=== PATIENT | female | born 1965 | race Caucasian/White ===

== ENCOUNTER 2022-02-03 12:28 | Emergency (ER) | payer BC, SELFPAY ==
[2022-02-03 12:40] VITALS: BP 138/106; PULSE 90; RESP 12; TEMP 37.2; O2SAT 98; BMI 23.0
--- NOTE | 2022-02-03 13:11 | ED_ITS ---
HPI - Dizziness General Chief Complaint: Dizziness/Vertigo Stated Complaint: Dizziness Time Seen by Provider: 02/03/22 13:11 Source: patient, family and RN notes reviewed History of Present Illness HPI Narrative: 56-year-old woman presenting to the emergency department with her with complaint of dizziness. Things are spinning around her not and she is feeling lightheaded. No sense of palpitations. This began upon waking from sleep 5 days ago. Has been intermittent and worse with movement. Not really present at rest. Seems to have symptoms when turning her head to the left or extending. She is initiated Roberto maneuvers. She works as a physical therapist diagnosed herself as having ?vertigo?. This has been on and off symptoms of this dizziness over the last 5 days. Was alarming today with her 3-1/2 hours ago when taking shower suddenly had a sensation of weakness in her right hand. Catarina like just felt strange. Still does not quite feel back to normal. She thought she was going to drop the soap. She has not had loss of sensation. No chest pain, shortness of breath, palpitations. No recent head cold or cough symptoms. About a week ago had had a insect bite perhaps in the right mid volar forearm. Any effect of that had faded. Related Data Previous Rx's Medication Instructions Recorded diazepam 5 mg tablet (Valium) 5 mg PO TID PRN #6 tab 02/03/22 meclizine 25 mg tablet 25 mg PO TID PRN #15 tab 02/03/22 prednisone 20 mg tablet 40 mg PO DAILY 5 Days #10 tab 02/03/22 Allergies Allergy/AdvReac Type Severity Reaction Status Date / Time No Known Drug Allergies Allergy Verified 02/03/22 12:50 Review of Systems Status of ROS: Reports: 10 or more systems reviewed and unremarkable except as noted in History and below [facility] Medical History No significant past medical history Surgical History H/O adenoidectomy Social History Smoking Status: Never smoker How often do you have a drink containing alcohol: 2-3 times a week AUDIT-C Alcohol total score: 3 Non-prescribed substance use: denies use Exam Narrative: Exam Narrative: Pleasant. NAD. Speaking fluidly easily. Moving all extremities without difficulty. Full strength throughout. Cranial nerves 2-12 intact Head is atraumatic. No facial swelling erythema or tenderness. TMs bilaterally are clear Neck is supple. No LA. No bruits. Lungs are clear Cardiovascular RRR no MR Ivone There does appear to be nystagmus to the left side with eye movements. Hints exam did seem subtly positive perhaps with the left side. Const: Vital Signs, click to edit/add: Vital Signs - 24 hr 02/03/22 12:40 02/03/22 14:30 02/03/22 16:20 Temperature 98.9 F 98.9 F Pulse Rate [Pulse Oximeter] 90 80 Respiratory Rate 12 14 14 Blood Pressure [Le ft Upper Arm] 138/106 H 117/60 Pulse Oximetry 98 98 Documenting provider has reviewed patient's vital signs: yes Course Course Hospital Course: monitored without further event. received ivf hand symptoms resolved Vital Signs Vital signs: Initial Vital Signs Temperature 98.9 F 02/03/22 12:40 Temperature Source Temporal Artery Scan 02/03/22 12:40 Pulse Rate 90 02/03/22 12:40 Pulse Rhythm 02/03/22 12:40 Respiratory Rate 12 02/03/22 12:40 Blood Pressure 138/106 H 02/03/22 12:40 Blood Pressure Mean 116 02/03/22 12:40 Blood Pressure Position Sitting 02/03/22 12:40 Pulse Oximetry 98 02/03/22 12:40 Oxygen Delivery Method 02/03/22 12:40 Vital Signs Temperature 98.9 F 02/03/22 12:40 Pulse Rate 90 02/03/22 12:40 Respiratory Rate 12 02/03/22 12:40 Blood Pressure 138/106 H 02/03/22 12:40 Pulse Oximetry 98 02/03/22 12:40 Temperature 98.9 F 02/03/22 16:20 Pulse Rate 80 02/03/22 14:30 Respiratory Rate 14 02/03/22 16:20 Blood Pressure 117/60 02/03/22 14:30 Pulse Oximetry 98 02/03/22 14:30 MDM - Dizziness MDM Narrative Medical decision making narrative: given what otherwise I would believe to be peripheral vertigo/bppv, discussed case with neurology sterilisation technician Dr. Stern. recommendations are for next level imaging. mri not available. ordered cta head/neck. no sig risk factors Medical Records Attestation: I reviewed the patient's medical records. Discharge Plan Discharge Clinical Impression: Benign paroxysmal positional vertigo, Paresthesia of hand Patient Disposition: Home w/ Parent or Adult Condition: Improved Additional Instructions: Using the word paresthesia for lack of better terminology think. Focus on hydration. Return for new and focal weakness, severe headache, visual loss, unremitting the dizziness, repeated vomiting. We will contact you if there is further information on review again of your images. You can continue with the Roberto maneuvers in the meantime. Consider taking meclizine regularly over the next 3-4 days. Prescriptions: New meclizine 25 mg tablet 25 mg PO TID PRN (Reason: dizziness) Qty: 15 0RF prednisone 20 mg tablet 40 mg PO DAILY 5 Days Qty: 10 0RF diazepam [Valium] 5 mg tablet 5 mg PO TID PRN (Reason: severe dizziness) Qty: 6 0RF Follow Up/Referrals: Javier Ortiz MD [Primary Care Provider] - Stand Alone Forms: [employer] Info Instructions
--- NOTE | 2022-02-03 14:15 | TELERAD_ITS ---
Patient: DONNIE RESTREPO Facility:?[facility] Patient ID:?[id number] Site Patient ID:?[id number]. Site :?[id number] Study:?CT-Neck Angio Angio 95CC ISOVUE 370 NON ACUTE-02/03/2022 3:06:53 PM Ordering Physician:Savanah Mckeon Final Report: INDICATION: Intermittent vertigo, right hand weakness. TECHNIQUE: CTA neck with contrast bolus tracking and 3D MIP reconstruction. FINDINGS: There is normal opacification of the carotid and vertebral arteries. There is no stenosis or dissection. The soft tissues of the neck are within normal limits. The cervical spine is in normal alignment. IMPRESSION: Unremarkable neck CTA. Please note that all CT scans at this facility use dose modulation, iterative reconstruction, and/or weight-based dosing when appropriate to reduce radiation dose to as low as reasonably achievable. Dictated by Peña Anderson MD @ 02/04/2022 8:39:00 AM Signed by:?Peña Anderson MD @02/04/2022 8:39:00 AM (Electronic Signature)
--- NOTE | 2022-02-03 14:15 | CT_ITS ---
Patient: DONNIE RESTREPO Facility:?[facility] Patient ID:?[id number] Site Patient ID:?[id number]. Site :?[id number] Study:?CT-Head Angio 95CC ISOVUE 370 NON ACUTE-02/03/2022 3:07:26 PM Ordering Physician:Savanah Mckeon Final Report: INDICATION: Intermittent vertigo, right hand weakness. TECHNIQUE: CTA head with contrast bolus tracking and 3D MIP reconstruction. FINDINGS: There is normal opacification of the intracranial vasculature. There is no significant intracranial stenosis. There is no large vessel occlusion. No aneurysm is identified. IMPRESSION: Unremarkable head CTA. Please note that all CT scans at this facility use dose modulation, iterative reconstruction, and/or weight-based dosing when appropriate to reduce radiation dose to as low as reasonably achievable. Dictated by Peña Anderson MD @ 02/04/2022 8:37:53 AM Signed by:?Peña Anderson MD @02/04/2022 8:37:53 AM (Electronic Signature)
[2022-02-03 14:30] VITALS: BP 117/60; PULSE 80; RESP 14; O2SAT 98
[2022-02-03] MEDS: 0.9 % SODIUM CHLORIDE 1000 ml 1,000 ML IV (15:05)
[2022-02-03 16:20] VITALS: RESP 14; TEMP 37.2
== END 2022-02-03 16:21 | disposition home or self-care (01) ==
PROVIDERS: Emergency Provider Family Medicine; PCP Internal Medicine
DX: H81.10 Benign paroxysmal vertigo, unspecified ear (principal); R20.2 Paresthesia of skin
CPT/HCPCS: 70496; 70498; 99283; 99284; J7030; Q9967

== ENCOUNTER 2022-04-17 13:16 | Outpatient (CLI) | payer BC, SELFPAY ==
--- NOTE | 2022-04-17 15:00 | CRLHL7_ITS ---
For Patients: As a result of the Century Cures Act, medical imaging exams and procedure reports are released immediately into your electronic medical record. You may view this report before your referring provider. If you have questions, please contact your health care provider. BILATERAL SCREENING MAMMOGRAM WITH COMPUTER-AIDED DETECTION AND TOMOSYNTHESIS TECHNIQUE: CC and MLO views were obtained. These mammographic images have been obtained using full-field digital technique. These mammographic images were interpreted with the benefit of computer-aided detection. Breast Tomosynthesis was used in this interpretation. COMPARISON FILM: 11/07/20, 09/15/19, 08/19/17. FINDINGS: The breasts are heterogeneously dense, which may obscure small masses IMPRESSION: There is no radiographic evidence for malignancy. ASSESSMENT: BI-RADS Category 1: Negative RECOMMENDATION: Routine screening mammogram in 1 year. A lay language report of this examination will be provided to the patient. Mike Johnson M.D. Diagnostic Radiologist [email or web address] [place]/Dictated by: Mike Johnson MD @ 04/18/2022 8:54:00 AM (Electronically Signed)
== END 2022-04-17 13:17 | disposition home or self-care (01) ==
LOC: MAMMO 13:17
PROVIDERS: PCP Internal Medicine; Visit Provider Physician Assistant
DX: Z12.31 Encounter for screening mammogram for malignant neoplasm of breast (principal); R92.2 Inconclusive mammogram
CPT/HCPCS: 77063; 77067; 80061; 82947

== ENCOUNTER 2023-06-10 07:55 | Outpatient (CLI) | payer BC, SELFPAY ==
--- NOTE | 2023-06-10 08:15 | CRLHL7_ITS ---
For Patients: As a result of the Century Cures Act, medical imaging exams and procedure reports are released immediately into your electronic medical record. You may view this report before your referring provider. If you have questions, please contact your health care provider. BILATERAL SCREENING MAMMOGRAM WITH COMPUTER-AIDED DETECTION AND TOMOSYNTHESIS TECHNIQUE: CC and MLO views were obtained. These mammographic images have been obtained using full-field digital technique. These mammographic images were interpreted with the benefit of computer-aided detection. Breast Tomosynthesis was used in this interpretation. COMPARISON FILM: 04/17/22, 11/07/20, 09/15/19. FINDINGS: The breasts are heterogeneously dense, which may obscure small masses IMPRESSION: There is no radiographic evidence for malignancy. ASSESSMENT: BI-RADS Category 1: Negative RECOMMENDATION: Routine screening mammogram in 1 year. A lay language report of this examination will be provided to the patient. Mike Johnson M.D. Diagnostic Radiologist [email or web address] [place]/Dictated by: Mike Johnson MD @ 06/10/2023 9:36:00 AM (Electronically Signed)
== END 2023-06-10 07:56 | disposition home or self-care (01) ==
LOC: MAMMO 07:57
PROVIDERS: PCP Physician Assistant; Visit Provider Internal Medicine
DX: Z12.31 Encounter for screening mammogram for malignant neoplasm of breast (principal); R92.2 Inconclusive mammogram
CPT/HCPCS: 77063; 77067

== ENCOUNTER 2024-11-24 08:06 | Outpatient (CLI) | payer BC, SELFPAY ==
--- NOTE | 2024-11-24 08:15 | CRLHL7_ITS ---
For Patients: As a result of the Century Cures Act, medical imaging exams and procedure reports are released immediately into your electronic medical record. You may view this report before your referring provider. If you have questions, please contact your health care provider. INDICATION: BILATERAL SCREENING MAMMOGRAM, ASYMPTOMATIC 58 Y/O FEMALE COMPARISON: 06/10/23, 04/17/22, 11/07/20 TECHNIQUE: CC and MLO views were obtained. These mammographic images have been obtained using full-field digital technique. These mammographic images were interpreted with the benefit of computer aided detection and tomosynthesis. BREAST COMPOSITION: The breasts are heterogeneously dense, which may obscure small masses. FINDINGS: No suspicious findings. ASSESSMENT: BI-RADS 2 Benign RECOMMENDATION: Annual screening mammogram. A lay language report of this examination will be provided to the patient. Dictated by: Mike Johnson MD @ 12/02/2024 10:50:13 (Electronically Signed)
== END 2024-11-24 08:07 | disposition home or self-care (01) ==
LOC: MAMMO 08:06
PROVIDERS: PCP Physician Assistant; Visit Provider Physician Assistant
DX: Z12.31 Encounter for screening mammogram for malignant neoplasm of breast (principal); R92.333 Mammographic heterogeneous density, bilateral breasts
CPT/HCPCS: 77063; 77067